=== PATIENT | female | born 1990 | race Two or more races ===

== ENCOUNTER 2017-03-29 13:01 | Emergency (ER) | payer OTHER ==
[~2017-03-29] VITALS: Ht 162.6 cm; Wt 54.4 kg
[2017-03-29 13:07] VITALS: BP 116/67
== END 2017-03-29 13:27 | disposition home or self-care (01) ==
LOC: ER 13:04
DX: L25.9 Unspecified contact dermatitis, unspecified cause (principal); N39.0 Urinary tract infection, site not specified
CPT/HCPCS: 99281; A4606; Z7610; Z7502

== ENCOUNTER 2017-10-25 11:21 | Emergency (ER) | payer OTHER ==
[~2017-10-25] VITALS: Ht 162.6 cm; Wt 53.5 kg
[2017-10-25 11:25] VITALS: BP 110/66
[2017-10-25 12:28] LABS: APPEARANCE,URINE SL CLOUDY (CLEAR); BILIRUBIN,URINE NEGATIVE (NEGATIVE); BLOOD, URINE TRACE-INTA Ery/uL (NEGATIVE); COLOR,URINE YELLOW (YELLOW); KETONES,URINE NEGATIVE (NEGATIVE); LEUKOCYTE ESTERASE ,URINE 3+ (NEGATIVE); NITRITE, URINE NEGATIVE (NEGATIVE); PROTEIN,URINE NEGATIVE (NEGATIVE); UGLUCOSE NEGATIVE (NEGATIVE); UROBILINOGEN,URINE 0.2 EU/dL (0.2)
[2017-10-25 12:33] LABS: BACTERIA,URINE Many /HPF (None Seen); SQUAMOUS EPITHELIAL CELL,UR Few /HPF (None Seen); WBC,URINE 21-50 /HPF (0-3)
== END 2017-10-25 15:38 | disposition home or self-care (01) ==
LOC: ER 11:23
DX: N39.0 Urinary tract infection, site not specified (principal); K29.70 Gastritis, unspecified, without bleeding
CPT/HCPCS: 81000-TC; 84703-TC; 87086-TC; A4606; Z7610

== ENCOUNTER 2018-05-03 16:24 | Emergency (ER) | payer OTHER ==
[~2018-05-03] VITALS: Ht 162.6 cm; Wt 55.5 kg
--- NOTE | 2018-05-03 16:45 | NUR ---
called to triage, no answer
[2018-05-03 17:16] LABS: BASOPHILS # (AUTO) 0.1 /CMM (0.0-0.2); BASOPHILS % (AUTO) 1.5 % (0.0-2.0); EOSINOPHILS % (AUTO) 1.2 % (0.0-6.0); HEMATOCRIT 40 % (33-45); HEMOGLOBIN 13.1 g/dL (11.5-14.8); LYMPHOCYTES # (AUTO) 2.1 /CMM (0.8-4.8); LYMPHOCYTES % (AUTO) 33.5 % (20.0-44.0); MEAN CORPUSCULAR HEMOGLOBIN 29 PG (26.0-33.0); MEAN CORPUSCULAR HGB CONC 33 g/dl (31.0-36.0); MEAN CORPUSCULAR VOLUME 89 fL (82-100); MONOCYTES # (AUTO) 0.4 /CMM (0.1-1.30); MONOCYTES % (AUTO) 6.9 % (2.0-12.0); NEUTROPHILS # (AUTO) 3.5 /CMM (1.8-8.9); NEUTROPHILS % (AUTO) 56.9 % (43.0-81.0); PLATELET COUNT (AUTO) 234 /CMM (150-450); RDW COEFFICIENT OF VARIATION 11.7 (11.5-15.0); RED BLOOD CELL COUNT(AUTO) 4.45 MIL/uL (4.0-5.2); WHITE BLOOD COUNT (AUTO) 6.2 K/uL (4.3-11.0)
[2018-05-03 17:25] LABS: CALCIUM, SERUM 8.8 mg/dL (8.5-10.1); CREATININE 0.8 mg/dL (0.6-1.3); POTASSIUM 3.7 mmol/L (3.5-5.1)
[2018-05-03] MEDS ORDERED: ONDANSETRON HCL/PF 4 MG/2 ML VIAL ONE (17:29)
[2018-05-03] MEDS ORDERED: ONDANSETRON HCL/PF 4 MG/2 ML VIAL IVP ONE (17:30)
[2018-05-03] MEDS ORDERED: IV NS 0.9% 1,000 ML BAG IV ONE (17:30)
[2018-05-03 17:31] LABS: ALBUMIN 4.1 g/dL (3.4-5.0); BILIRUBIN,DIRECT 0.2 mg/dL (0.0-0.2); BILIRUBIN,TOTAL 0.8 mg/dL (0.2-1.0); TOTAL PROTEIN, SERUM 8.2 g/dL (6.4-8.2)
--- NOTE | 2018-05-03 17:57 | NUR ---
IV removed. Catheter intact and site benign. Pressure and 4x4 applied to site. No bleeding noted.
--- NOTE | 2018-05-03 17:58 | NUR ---
PT. VERBALIZED UNDERSTANDING OF AFTERCARE INSTRUCTIONS.Patient discharged to home in stable condition. Written and verbal after care instructions given. Patient verbalizes understanding of instruction.
[2018-05-03 18:03] VITALS: BP 104/62
== END 2018-05-03 18:03 | disposition home or self-care (01) ==
LOC: ER 16:31
DX: R10.13 Epigastric pain (principal); Z87.19 Personal history of other diseases of the digestive system
CPT/HCPCS: 36415; 80048; 80076; 84702; 85025; 96374; 99284; A4606; J2405; J7030; Z7610

== ENCOUNTER 2019-02-19 19:53 | Emergency (ER) | payer MEDICAID, OTHER ==
[~2019-02-19] VITALS: Ht 162.6 cm; Wt 61.2 kg
[2019-02-19 19:58] VITALS: BP 110/60
[2019-02-19 20:32] LABS: APPEARANCE,URINE Clear (CLEAR); BILIRUBIN,URINE Negative (NEGATIVE); BLOOD, URINE Small Ery/uL (NEGATIVE); COLOR,URINE Yellow (YELLOW); KETONES,URINE Negative (NEGATIVE); LEUKOCYTE ESTERASE ,URINE Negative (NEGATIVE); NITRITE, URINE Negative (NEGATIVE); PH,URINE 5.5 (5.0-8.0); PROTEIN,URINE Negative (NEGATIVE); UGLUCOSE Negative (NEGATIVE); UROBILINOGEN,URINE 0.2 EU/dL (0.2)
[2019-02-19 20:51] LABS: BACTERIA,URINE Rare /HPF (None Seen); SQUAMOUS EPITHELIAL CELL,UR Few /HPF (None Seen); WBC,URINE NONE SEEN /HPF (0-3)
== END 2019-02-19 21:05 | disposition home or self-care (01) ==
LOC: ER 20:10
DX: N39.0 Urinary tract infection, site not specified (principal); Z60.2 Problems related to living alone; Z87.19 Personal history of other diseases of the digestive system
CPT/HCPCS: 81000-TC; 84703-TC; 87086-TC

== ENCOUNTER 2020-09-21 03:57 | Emergency (ER) | payer OTHER ==
[~2020-09-21] VITALS: Ht 162.6 cm; Wt 79.8 kg
--- NOTE | 2020-09-21 04:21 | NUR ---
PT AAOX4. BIBSELF C/O NV X3 DAYS. PT PLACED IN BED 17 ON MONITOR AND PULSE OX. LINE ESTABLISHED RAC 18G, BLOOD WORK COLLECTED, SENT TO LAB.
[2020-09-21] MEDS ORDERED: ONDANSETRON HCL/PF 4 MG/2 ML VIAL ONE (04:27)
[2020-09-21] MEDS ORDERED: ONDANSETRON HCL/PF 4 MG/2 ML VIAL IV ONE (04:30)
[2020-09-21] MEDS ORDERED: IV NS 0.9% 1,000 ML IV ONE (04:30)
[2020-09-21 04:41] LABS: BASOPHILS # (AUTO) 0.1 /CMM (0.0-0.2); BASOPHILS % (AUTO) 1.2 % (0.0-2.0); EOSINOPHILS % (AUTO) 0.2 % (0.0-6.0); HEMATOCRIT 44 % (33-45); HEMOGLOBIN 15.2 g/dL (11.5-14.8); LYMPHOCYTES # (AUTO) 1.3 /CMM (0.8-4.8); LYMPHOCYTES % (AUTO) 12.9 % (20.0-44.0); MEAN CORPUSCULAR HGB CONC 35 g/dl (31.0-36.0); MEAN CORPUSCULAR VOLUME 86 fL (82-100); MONOCYTES # (AUTO) 0.7 /CMM (0.1-1.30); MONOCYTES % (AUTO) 7.1 % (2.0-12.0); NEUTROPHILS # (AUTO) 7.9 /CMM (1.8-8.9); NEUTROPHILS % (AUTO) 78.6 % (43.0-81.0); PLATELET COUNT (AUTO) 261 /CMM (150-450); RED BLOOD CELL COUNT(AUTO) 5.05 MIL/uL (4.0-5.2)
[2020-09-21 04:49] LABS: CALCIUM, SERUM 9.7 mg/dL (8.5-10.1); CREATININE 0.9 mg/dL (0.6-1.3); POTASSIUM 3.2 mmol/L (3.5-5.1)
[2020-09-21] MEDS ORDERED: MAG HYDROX/AL HYDROX/SIMETH 30 ML UDC ONE (05:45)
[2020-09-21] MEDS ORDERED: LIDOCAINE VISCOUS 2% UD 15 ML UDC ONE (05:45)
[2020-09-21] MEDS ORDERED: MAG HYDROX/AL HYDROX/SIMETH 30 ML UDC PO ONE (06:00)
[2020-09-21] MEDS ORDERED: LIDOCAINE VISCOUS 2% UD 15 ML UDC MM ONE (06:00)
--- NOTE | 2020-09-21 06:02 | NUR ---
IV removed. Catheter intact and site benign. Pressure and 4x4 applied to site. No bleeding noted.
--- NOTE | 2020-09-21 06:02 | NUR ---
Patient discharged to home in stable condition. Written and verbal after care instructions given. Patient verbalizes understanding of instruction and RX. Pt ambulated out of E.D. VSS.
[2020-09-21 06:04] VITALS: BP 124/73
== END 2020-09-21 06:04 | disposition home or self-care (01) ==
LOC: ER 03:59
DX: O21.9 Vomiting of pregnancy, unspecified (principal); O99.611 Diseases of the digestive system complicating pregnancy, first trimester; K21.9 Gastro-esophageal reflux disease without esophagitis; Z60.2 Problems related to living alone; Z3A.12 12 weeks gestation of pregnancy
CPT/HCPCS: 36415; 80048; 84702; 85025; 96361; 96374; 99283; J2405; J7030

== ENCOUNTER 2025-07-05 20:21 | Emergency (ER) | payer OTHER ==
[~2025-07-05] VITALS: Ht 170.2 cm; Wt 83.9 kg
[2025-07-05 20:51] VITALS: BP 130/75; TEMP 98.6; O2SAT 98
[2025-07-05] MEDS ORDERED: LIDOCAINE VISCOUS 2% UD 15 ML UDC ONE (21:19)
[2025-07-05] MEDS ORDERED: MAG HYDROX/AL HYDROX/SIMETH 30 ML UDC ONE (21:19)
[2025-07-05] MEDS: LIDOCAINE VISCOUS 2% UD 15 ML UDC MM ONE (21:20)
[2025-07-05] MEDS: MAG HYDROX/AL HYDROX/SIMETH 30 ML UDC PO ONE (21:20)
[2025-07-05] MEDS ORDERED: MAG-55 PO (21:52)
== END 2025-07-05 23:24 | disposition home or self-care (01) ==
LOC: ER 20:25
DX: K29.70 Gastritis, unspecified, without bleeding (principal); K21.9 Gastro-esophageal reflux disease without esophagitis; Z87.19 Personal history of other diseases of the digestive system; Z91.048 Other nonmedicinal substance allergy status